=== PATIENT | female | born 1990 | race Caucasian/White ===

== ENCOUNTER → 2019-05-11 | Outpatient (CLI) | payer OTHER ==
--- NOTE | 2019-05-11 21:51 | RADIOLOGY REPORT (SQ) ---
EXAM DESCRIPTION: MRI LT LOWER EXTREMITY WITHOUT COMPLETED DATE/TIME: 05/11/2019 9:04 am REASON FOR STUDY: D21.9 BENIGN NEOPLASM OF CONNECTIVE AND OTHER SOFT TISSUE, UNSPECIFIED COMPARISON: None. TECHNIQUE: Multi planar imaging to include fat sensitive, fluid sensitive, and cartilage sensitive s equences. LIMITATIONS: None. FINDINGS: Bones: There is benign osseous projection from the distal femur medially well corticated and continuous with the femoral condyles. Typical appearance of an osteochondromas. There is a cart ilaginous cap. No surrounding edema. Soft tissues: No soft tissue edema. No evidence for edema within the muscle adjacent to the ostia c hondroma. Subcutaneous soft tissues: No masses. 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 No reactive changes or mass effect. TECHNICAL DOCUMENTATION: JOB ID: [id number] [employer]- All Rights Reserved Reading location - IP/workstation name: [email or web address]
== END ==
LOC: RAD 08:04
PROVIDERS: ATTEND Orthopaedic Surgery Sports Medicine
DX: D21.9 Benign neoplasm of connective and other soft tissue, unspecified (principal)